=== PATIENT | female | born 1995 | race Caucasian/White ===

== ENCOUNTER 2017-07-08 16:18 | Emergency (ER) | payer MEDICAID ==
[~2017-07-08] VITALS: Ht 160 cm; Wt 106.0 kg
[2017-07-08 16:58] LABS: URINE BILIRUBIN - DIPSTICK NEGATIVE (NEGATIVE); URINE BLOOD DIPSTICK NEGATIVE (NEGATIVE); URINE COLOR YELLOW; URINE GLUCOSE - DIPSTICK NEGATIVE (NEGATIVE); URINE KETONE TRACE mg/dL (NEGATIVE); URINE LEUK ESTERASE NEGATIVE (NEGATIVE); URINE NITRITE - DIPSTICK NEGATIVE (Negative); URINE PROTEIN - DIPSTICK NEGATIVE (NEG-TRACE); URINE SPECIFIC GRAVITY 1.015; URINE UROBILINOGEN - DIPSTICK 0.2 E.U./dL (0.2)
[2017-07-08 16:59] LABS: URINE CLARITY CLEAR
[2017-07-08] MEDS ORDERED: CYCLOBENZAPR5 MG PO ×2 (18:19→18:34)
[2017-07-08] MEDS ORDERED: MOTRIN400 MG PO ×2 (18:19→18:34)
[2017-07-08 18:20] VITALS: BP 152/89
== END 2017-07-08 18:20 | disposition home or self-care (01) | DRG 552 ==
LOC: ED 16:18
PROVIDERS: Family Medicine
DX: M54.5 Low back pain (principal); M48.07 Spinal stenosis, lumbosacral region